=== PATIENT | female | born 1955 | race Caucasian/White ===

== ENCOUNTER 2016-08-08 16:27 | Emergency (ER) | payer OTHER ==
--- NOTE | 2016-08-08 17:09 | EDPHY ---
HPI/HX/ROS/PE/MDM Narrative: CHIEF COMPLAINT: Catheter problems HPI: The patient is a 60 y/o female, with a history of MS, complaining of leaking around and reduced flow from her new model of urinary catheter. Her insurance company only pays for one catheter monthly, so she bought some on her own to supplement and feels like this model is too short. She also notes increasing sediment in her urine causing frequent clogging of her catheters. She has not seen a urologist recently and is primarily managed by home health care. She denies significant pain, fever, or other complaints and is only here for assistance with her catheter. REVIEW OF SYSTEMS: Aside from elements discussed in the HPI, a comprehensive 10-point review of systems was reviewed and is negative. PMH: MS, wheelchair-bound, hypothyroidism, COPD SOCIAL HISTORY: Smoker. Home health. Prior medical records reviewed including [facility] visit 05/27/16 for dyspnea and muscle spasms. PHYSICAL EXAM: General:Patient is alert, in no acute distress. Respiratory:No respiratory distress. Breath sounds normal bilaterally. Cardiovascular Strong peripheral pulses. Normal cap refill. Abdomen:The abdomen is nontender to palpation. There are no peritoneal signs. There are normal bowel sounds. ED Course: Nurse placed a new Fitzpatrick catheter with good resolution of the patient's complaint. General Time Seen by Provider: 08/08/16 16:42 Initial Vital Signs: Initial Vital Signs Temperature (C) 36.5 C 08/08/16 16:35 Heart Rate 81 08/08/16 16:35 Respiratory Rate 16 08/08/16 16:35 Blood Pressure 124/80 H 08/08/16 16:35 O2 Sat (%) 90 L 08/08/16 16:35 O2 Delivery Mode Room Air Allergies/Adverse Reactions: No Known Allergies Allergy (Verified 05/27/16 16:00) Home Medications: Medication Instructions Recorded Levothyroxine [Synthroid 112 mcg 11/09/11 (RX)] Baclofen 03/14/16 GABAPENTIN 03/14/16 Advair 100/50 (*) 05/27/16 VITAMIN D 05/27/16 Vitamin C 05/27/16 Departure - Departure Disposition: Home, Routine, Self-Care Clinical Impression: Fitzpatrick catheter problem Qualifiers: Encounter type: initial encounter Qualifier Code: (T83.9XXA) Unspecified complication of genitourinary prosthetic device, implant and graft, initial encounter Condition: Good Instructions: Fitzpatrick Catheter Placement and Care (ED) Additional Instructions: Follow up with your urologist for concerns regarding sediment in your urine. Return to the ED for worsening of condition. Referrals: Jo Ann العراقي MD [Primary Care Provider] - As per Instructions Danni Sampson MD [Medical Doctor] - As per Instructions Report Scribed for: Adalid Ríos Report Scribed by: Alysha Parsons Date of Report: 08/08/16 Time of Report: 17:02 Physician Review and Approval Statement: Portions of this note were transcribed by an ED scribe. I personally performed the history, physical exam, and medical decision making; and confirm the accuracy of the information in the transcribed note.
[2016-08-08 17:41] VITALS: BP 128/67; PULSE 82; RESP 18; TEMP 98.2; O2SAT 96
== END 2016-08-08 17:44 | disposition home or self-care (01) ==
PROC: 0T9B70Z Drainage of Bladder with Drainage Device, Via Natural or Artificial Opening (ICD-10-PCS; principal; 2016-08-08)
DX: T83.9XXA Unspecified complication of genitourinary prosthetic device, implant and graft, initial encounter (principal); J44.9 Chronic obstructive pulmonary disease, unspecified; F17.200 Nicotine dependence, unspecified, uncomplicated; Y82.8 Other medical devices associated with adverse incidents

== ENCOUNTER 2016-08-19 18:43 | Emergency (ER) | payer OTHER ==
--- NOTE | 2016-08-19 19:02 | UCPHY ---
H & P Patient Type: Established Chief Complaint Nursing Narrative: cathter not draining, tried flushing w/o resolution. states having issues with sediment in urine HPI/ROS: HPI CHIEF COMPLAINT: Possible catheter obstruction, catheter not draining HISTORY OF PRESENT ILLNESS: This patient very pleasant 60-year-old female, presents to the emergency room with a indwelling Fitzpatrick catheter, non suprapubic , she presents to urgent care stating that Fitzpatrick catheter is not draining appropriately she knows has not been draining for the past 3 hours. She denies fever, vomiting, abdominal pain, back pain, or abdominal distention. She does tell me she tried to flush the catheter at home however was unable to get it to flush and have output. She often times gets sediment buildup and needs her Fitzpatrikc catheter changed. Past Medical History: MS Past Surgical History: Denies significant recent surgical history Social History: Denies daily use of drugs alcohol tobacco products Family History: Noncontributory ROS REVIEW OF SYSTEMS: A comprehensive 10 point review of systems is otherwise negative aside from elements mentioned in the history of present illness. Exam Constitutional appears well nontoxic, triage nursing summary reviewed, vital signs reviewed, awake/alert. Eyes normal conjunctivae and sclera, EOMI, PERRLA. HENT normal inspection, atraumatic, moist mucus membranes, no epistaxis, neck supple/ no meningismus, no raccoon eyes. Respiratory clear to auscultation bilaterally, normal breath sounds, no respiratory distress, no wheezing. Cardiovascular rate normal, regular rhythm, no murmur, no edema, distal pulses normal. Gastrointestinal soft, non-tender, no rebound, no guarding, normal bowel sounds, no distension, no pulsatile mass. Genitourinary no CVA tenderness. Musculoskeletal no midline vertebral tenderness, full range of motion, no calf swelling, no tenderness of extremities, no meningismus, good pulses, neurovascularly intact. Skin pink, warm, & dry, no rash, skin atraumatic. Neurologic awake, alert and oriented x 3, AAOx3, moves all 4 extremities equally, motor intact, sensory intact, CN II-XII intact, normal cerebellar, normal vision, normal speech. Psychiatric normal mood/affect. Heme/Lymph/Immune no lymphadenopathy. Differential Diagnosis: includes but is not limited to in a particular order, urinary catheter obstruction, sediment obstruction, UTI, malposition of Fitzpatrick catheter Medical Decision Making: We will attempt of 1 1st flush Fitzpatrick catheter, however this does not resolve the obstruction will need to place a new Fitzpatrick catheter. I did send a urinalysis and urine culture she is nitrite positive however it is unclear with a chronic indwelling catheter, however this catheter is only been in for week with nitrite positive urinalysis I will place her on Keflex her primary care doctor will follow-up about her urinalysis urine culture result. This been instructed to the patient. Prescription given for Keflex for possible UTI. Culture sent. Her Fitzpatrick has been changed here in the Urgent Care 400 cc of clear yellow tinged urine was removed. Minimal sediment. No obstruction. Good flow with new catheter patient is pleased and comfortable being discharged. No abdominal pain no back pain no fever no vomiting no nausea. Feels well ready for discharge. Source: Patient - Personal History Tetanus Vaccine Date: within 10 years - Medical/Surgical History Hx Asthma: No Hx Chronic Respiratory Disease: Yes Hx Diabetes: No Hx Cardiac Disease: No Hx Renal Disease: No Hx Cirrhosis: No Hx Alcoholism: No Hx HIV/AIDS: No Hx Splenectomy or Spleen Trauma: No Other PMH: MS - Family History Significant Family History: No pertinent family hx - Social History Smoking Status: Current every day smoker Constitutional: Initial Vital Signs Temperature (C) 36.8 C 08/19/16 18:53 Heart Rate 82 08/19/16 18:53 Respiratory Rate 16 08/19/16 18:53 Blood Pressure 107/74 08/19/16 18:53 O2 Sat (%) 92 08/19/16 18:53 O2 Delivery Mode Room Air Allergies/Adverse Reactions: No Known Allergies Allergy (Verified 05/27/16 16:00) Home Medications: Medication Instructions Recorded Levothyroxine [Synthroid 112 mcg 11/09/11 (RX)] Baclofen 03/14/16 GABAPENTIN 03/14/16 Advair 100/50 (*) 05/27/16 VITAMIN D 05/27/16 Vitamin C 05/27/16 Cephalexin [Keflex] 500 mg PO Q6H #28 cap 08/19/16 Medical Decision Making - Data Points Laboratory Results: 08/19/16 20:25 Urine Color YELLOW Urine Appearance HAZY Urine pH 7.5 (5.0-7.5) Ur Specific [place] 1.015 (1.002-1.030) Urine Protein NEGATIVE (NEGATIVE) Urine Ketones TRACE H (NEGATIVE) Urine Blood NEGATIVE (NEGATIVE) Urine Nitrate POSITIVE H (NEGATIVE) Urine Bilirubin NEGATIVE (NEGATIVE) Urine Urobilinogen 0.2 EU EU (0.2-1.0) Ur Leukocyte Esterase 3+ H (NEGATIVE) Urine RBC Pending Urine WBC Pending Ur Epithelial Cells Pending Ur Culture Indicated? INDICATED H (NI) Urine Glucose NEGATIVE (NEGATIVE) Departure - Departure Disposition: Home, Routine, Self-Care Clinical Impression: Fitzpatrick catheter problem Qualifiers: Encounter type: initial encounter Qualified Code(s): T83.9XXA - Unspecified complication of genitourinary prosthetic device, implant and graft, initial encounter UTI (urinary tract infection) Qualifiers: Urinary tract infection type: acute cystitis Hematuria presence: without hematuria Qualified Code(s): N30.00 - Acute cystitis without hematuria Condition: Good Instructions: Fitzpatrick Catheter Placement and Care (ED) Additional Instructions: 1. Drink lots of fluids. 2. return to the urgent care or emergency room if you have any further complications or questions or concerns about her Fitzpatrick catheter. Please also follow up with her primary care doctor. Referrals: Jo Ann العراقي MD [Primary Care Provider] - As per Instructions Prescriptions: Cephalexin [Keflex] 500 mg PO Q6H #28 cap - PQRS PQRS Measurement: n/a
[2016-08-19 20:32] LABS: COLOR YELLOW; LEUKOCYTE ESTERASE,URINE 3+ (NEGATIVE); PH,URINE 7.5 (5.0-7.5)
[2016-08-19 20:33] LABS: NITRITE,URINE POSITIVE (NEGATIVE)
[2016-08-19 20:41] LABS: BACTERIA 3+ /hpf (NONE SEEN); MUCUS 1+ /lpf (NONE-1+); RBC,URINE OCCASIONAL /hpf (0-3); WBC,URINE >182 /hpf (0-3)
[2016-08-19 20:57] VITALS: BP 124/74; PULSE 75; RESP 20; TEMP 98.4; O2SAT 95
== END 2016-08-19 20:55 | disposition home or self-care (01) ==
LOC: CED 18:43
DX: T83.9XXA Unspecified complication of genitourinary prosthetic device, implant and graft, initial encounter (principal); N30.00 Acute cystitis without hematuria; Z46.6 Encounter for fitting and adjustment of urinary device; Z72.0 Tobacco use
CPT/HCPCS: 81003-PO; 81015-PO; 99214-PO; G0463-PO